=== PATIENT | female | born 1990 | race Caucasian/White ===

== ENCOUNTER 2016-10-01 05:33 | Emergency (ER) | payer OTHER ==
[~2016-10-01 05:33] MED LIST: ACET50TA PO; MOTR200T44 PO; PRE-TAB3 PO
[2016-10-01 06:01] LABS: CONTROL LINE UCG INT CTR LINE PRESENT
[2016-10-01] MEDS ORDERED: PHENAZOPYRIDINE 100 MG TAB As Ordered ONE (06:48)
[2016-10-01] MEDS ORDERED: CIPROFLOXACIN 500 MG TAB As Ordered ONE (06:48)
--- NOTE | 2016-10-01 06:55 | EDDOCDS ---
Nurse's Notes [facility] Name: Alyce Iqbal Age: 26 yrs Sex: Female : 1990 Arrival Date: 10/01/2016 Time: 05:33 Bed 17 Private MD: Breanna Law Diagnosis: Acute cystitis with hematuria Presentation: 10/01 05:39 Presenting complaint: Patient states: back pain since Friday urinary frequency and cz burning hematuria yesterday morning. Adult Sepsis Screening: The patient does not have new or worsening altered mentation. Patient's respiratory rate is less than 22. Systolic blood pressure is greater than 100. Patient has a qSOFA score of 0- Negative Sepsis Screen. Suicide/Homicide risk assessment- the patient denies having any suicidal and/or homicidal ideations and does not present with any other emotional, behavioral or mental health complaints. Status: The patient is a dependent. Transition of care: patient was not received from another setting of care. 05:39 Acuity: GÓMEZ Level 4 cz 05:39 Method Of Arrival: Walkin/Carried/Asstd cz Triage Assessment: 05:42 General: Appears in no apparent distress. Pain: Location: pelvis Pain currently is 4 cz out of 10 on a pain scale. Pt Declines HIV testing. 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 Zoloft Oral 2. control - PMHx: Depression; - PSHx: wisdom teeth extraction; - Social history: Smoking status: Patient states was never smoker of tobacco. No barriers to communication noted, The patient speaks fluent Syriac, Speaks appropriately for age. - Family history: Not pertinent. - : The pt / caregiver states he / she is not on anticoagulants. Home medication list is obtained from the patient. - Exposure Risk Screening:: None identified. Screenin:56 Screening information is obtained from the patient. Fall risk: No risks identified. ko2 Assistance ADL's: requires no assistance with activities of daily living. Abuse/DV Screen: The patient / caregiver reports he/she is: not in a situation that causes fear, pain or injury. Nutritional screening: No deficits noted. Advance Directives: Currently, there is no health care proxy. There is no active DNR order. There is no living will. There is no Power of Online Content Editor. home support is adequate. Assessment: 05:55 General: Appears in no apparent distress, Behavior is appropriate for age, cooperative. ko2 Pain: Location: pelvis. Neurological: No deficits noted. Respiratory: No deficits noted. : Reports burning with urination hematuria urinary frequency. Derm: Skin is normal. Musculoskeletal: Range of motion intact in all extremities. 06:53 General: Appears in no apparent distress, Behavior is appropriate for age, cooperative. ko2 Pain: Location: pelvis. Neurological: No deficits noted. Respiratory: No deficits noted. Derm: Skin is normal. Vital Signs: 05:42 BP 114 / 63; Pulse 78; Resp 16; Temp 97.5; Pulse Ox 97% ; Weight 72.57 kg; Height 5 ft. cz 6 in. (167.64 cm); 05:42 Body Mass Index 25.82 (72.57 kg, 167.64 cm) cz Vitals: 05:42 Log In Time: October 01, 2016 at 05:33. ED Course: 05:35 Patient visited by Brody Gong Reg. pm4 05:35 Breanna Law is Private Physician. pm4 05:35 Patient moved to Waiting pm4 05:41 Triage Initiated cz 05:53 Lety Murphy,RN is Primary Nurse. cz 05:53 Patient moved to 17 cz 05:55 Patient visited by Lety Murphy,SHILPI. ko2 05:56 The patient / caregiver is instructed regarding the plan of care and ED course. ko2 06:08 [facility] Payment Agreement was scanned into [employer] and attached to record. hs2 06:11 Patient name changed from Alyce\S\\S\Sofield\S\ to Alyce\S\Clary\S\Sofield. EDMS 06:22 Álvaro Gillespie DO is Attending Physician. mm11 06:23 Patient visited by Álvaro Gillespie DO. mm11 06:43 Patient visited by Álvaro Gillespie DO. mm11 06:43 Johnathan [facility] is Referral Physician. mm11 06:53 No IV's were initiated during this patient's visit. No procedures done that require ko2 assistance. Administered Medications: 06:53 Drug: Ciprofloxacin 500 mg [ciprofloxacin 500 mg tablet (1 tabs)] Route: PO; ko2 06:53 Drug: Phenazopyridine 200 mg [phenazopyridine 100 mg tablet (2 tabs)] Route: PO; ko2 Order Results: Lab Order: UA; SPEC'M 10/01/16 05:48 Test: APPEARANCE, URINE; Value: CLOUDY; Range: CLEAR; Abnormal: Above high normal; Status: F Test: COLOR, URINE; Value: LEIF; Range: YELLOW; Status: F Test: PH,URINE; Value: 5.0; Range: 5.0-9.0; Units: UNITS; Status: F Test: SPECIFIC GRAVITY URINE AUTO; Value: 1.018; Range: 1.002-1.035; Status: F Test: PROTEIN, URINE AUTO; Value: 1+; Range: NEGATIVE; Abnormal: Above high normal; Units: mg/dL; Status: F Test: GLUCOSE, URINE (UA) AUTO; Value: NEGATIVE; Range: NEGATIVE; Units: mg/dL; Status: F Test: KETONE, URINE AUTO; Value: NEGATIVE; Range: NEGATIVE; Units: mg/dL; Status: F Test: UROBILINOGEN, URINE AUTO; Value: 0.2; Range: 0.0-2.0; Units: mg/dL; Status: F Test: BILIRUBIN, URINE AUTO; Value: NEGATIVE; Range: NEGATIVE; Status: F Test: NITRITE, URINE AUTO; Value: POSITIVE; Range: NEGATIVE; Status: F Test: LEUKOCYTE ESTERASE, URINE AUTO; Value: 3+; Range: NEGATIVE; Abnormal: Above high normal; Status: F Test: BLOOD, URINE BLOOD; Value: 2+; Range: NEGATIVE; Abnormal: Above high normal; Status: F Test: WBC, URINE AUTO; Value: TNTC; Range: 0-3; Abnormal: Above high normal; Units: /HPF; Status: F Test: RBC, URINE AUTO; Value: 87; Range: 0-3; Abnormal: Above high normal; Units: /HPF; Status: F Test: BACTERIA, URINE AUTO; Value: 1+; Range: NEGATIVE; Abnormal: Above high normal; Status: F Test: SQUAMOUS EPITHELIAL CELL UR AU; Value: 2; Range: 0-6; Units: /HPF; Status: F Test: MUCUS, URINE; Value: SMALL; Range: NEGATIVE; Status: F Test: HYALINE CAST, URINE AUTO; Value: 0; Range: 0-1; Units: /LPF; Status: F Lab Order: Urine Test-In Lab; SPEC'M 10/01/16 05:48 Test: URINE PREG TEST; Value: NEGATIVE; Range: NEGATIVE; Status: F Outcome: 06:44 Discharge ordered by Provider. mm11 06:53 Discharge Assessment: Patient awake, alert and oriented x 3. No cognitive and/or ko2 functional deficits noted. Patient verbalized understanding of disposition instructions. patient administered narcotics - no. The following High Risk Discharge criteria are identified: None. Discharged to home ambulatory. Condition: stable. Discharge instructions given to patient, Instructed on discharge instructions, follow up and referral plans. medication usage, Demonstrated understanding of instructions, medications, Pt was receptive of discharge instructions/ teaching. Prescriptions given X 2. No special radiology studies were completed. Property sent home with patient. 06:54 Patient left the ED. ko2 Signatures: Dispatcher [employer] EDMS Buck Vazquez RN RN cz Álvaro Gillespie, DO DO mm11 Lety Murphy RN RN ko2 Jocelyne Iabrra, Reg Reg hs2 Brody Gong, Reg Reg pm4 ADEND
--- NOTE | 2016-10-01 06:55 | EDDOCDS ---
Physician Documentation [facility] Name: Alyce Iqbal Age: 26 yrs Sex: Female : 1990 Arrival Date: 10/01/2016 Time: 05:33 Bed 17 Private MD: Breanna Law Disposition: 10/01/16 06:44 Discharged to Home/Self Care. Impression: Acute cystitis with hematuria. - Condition is Stable. - Discharge Instructions: Urinary Tract Infection, Urinary Tract Infection, [id number]. - Prescriptions for Pyridium 200 mg Oral Tablet - take 1 tablet by ORAL route every 8 hours for 3 days; 9 tablet. Cipro 500 mg Oral Tablet - take 1 tablet by ORAL route every 12 hours; 10 tablet. - Medication Reconciliation, Local Pharmacy Hours form. - Follow up: CURRY Mann; When: Call to arrange an appointment; Reason: Continuance of care. - Problem is an acute exacerbation. - Symptoms have improved. Historical: - Allergies: No known drug Allergies; - Home Meds: 1. Zoloft Oral 2. control - PMHx: Depression; - PSHx: wisdom teeth extraction; - Social history: Smoking status: Patient states was never smoker of tobacco. No barriers to communication noted, The patient speaks fluent Arabic, Speaks appropriately for age. - Family history: Not pertinent. - : The pt / caregiver states he / she is not on anticoagulants. Home medication list is obtained from the patient. - Exposure Risk Screening:: None identified. 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 6 in. (167.64 cm); 05:42 Body Mass Index 25.82 (72.57 kg, 167.64 cm) cz MDM: 05:46 UA Ordered. EDMS 05:46 Urine Test-In Lab Ordered. EDMS 05:46 Urine Culture Ordered. EDMS 06:08 [facility] Payment Agreement was scanned into [employer] and attached to record. hs2 06:43 UA Reviewed. mm11 06:43 Urine Test-In Lab Reviewed. mm11 06:43 Ciprofloxacin 500 mg PO once ordered. mm11 06:43 Phenazopyridine 200 mg PO once ordered. mm11 06:44 Financial registration complete. hs2 Administered Medications: 06:53 Drug: Ciprofloxacin 500 mg [ciprofloxacin 500 mg tablet (1 tabs)] Route: PO; ko2 06:53 Drug: Phenazopyridine 200 mg [phenazopyridine 100 mg tablet (2 tabs)] Route: PO; ko2 Signatures: Dispatcher [employer] EDMS Buck Vazquez RN RN cz Álvaro Gillespie DO DO mm11 Lety Murphy RN RN ko2 Jocelyne Ibarra, Reg Reg hs2 The chart was reviewed and I authenticate all verbal orders and agree with the evaluation and treatment provided.Attachments: 06:08 [facility] Payment Agreement hs2 MTDD
--- NOTE | 2016-10-03 07:55 | EDDOCDS ---
Physician Documentation [facility] Name: Alyce Iqbal Age: 26 yrs Sex: Female : 1990 Arrival Date: 10/01/2016 Time: 05:33 Bed 17 Private MD: Breanna Law Disposition: 10/01/16 06:44 Discharged to Home/Self Care. Impression: Acute cystitis with hematuria. - Condition is Stable. - Discharge Instructions: Urinary Tract Infection, Urinary Tract Infection, [id number]. - Prescriptions for Pyridium 200 mg Oral Tablet - take 1 tablet by ORAL route every 8 hours for 3 days; 9 tablet. Cipro 500 mg Oral Tablet - take 1 tablet by ORAL route every 12 hours; 10 tablet. - Medication Reconciliation, Local Pharmacy Hours form. - Follow up: CURRY Mann; When: Call to arrange an appointment; Reason: Continuance of care. - Problem is an acute exacerbation. - Symptoms have improved. Historical: - Allergies: No known drug Allergies; - Home Meds: 1. Zoloft Oral 2. control - PMHx: Depression; - PSHx: wisdom teeth extraction; - Social history: Smoking status: Patient states was never smoker of tobacco. No barriers to communication noted, The patient speaks fluent Portuguese, Speaks appropriately for age. - Family history: Not pertinent. - : The pt / caregiver states he / she is not on anticoagulants. Home medication list is obtained from the patient. - Exposure Risk Screening:: None identified. 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 6 in. (167.64 cm); 05:42 Body Mass Index 25.82 (72.57 kg, 167.64 cm) cz MDM: 05:46 UA Ordered. EDMS 05:46 Urine Test-In Lab Ordered. EDMS 05:46 Urine Culture Ordered. EDMS 06:08 [facility] Payment Agreement was scanned into [employer] and attached to record. hs2 06:43 UA Reviewed. mm11 06:43 Urine Test-In Lab Reviewed. mm11 06:43 Ciprofloxacin 500 mg PO once ordered. mm11 06:43 Phenazopyridine 200 mg PO once ordered. mm11 06:44 Financial registration complete. hs2 12:13 T-Sheet-- Draft Copy was scanned into [employer] and attached to record. gb Administered Medications: 06:53 Drug: Ciprofloxacin 500 mg [ciprofloxacin 500 mg tablet (1 tabs)] Route: PO; ko2 06:53 Drug: Phenazopyridine 200 mg [phenazopyridine 100 mg tablet (2 tabs)] Route: PO; ko2 Signatures: Dispatcher [employer] EDMS Buck Vazquez, RN RN cz Echo Mays, Reg Reg gb Álvaro Gillespie DO DO mm11 Lety Murphy RN RN ko2 Jocelyne Ibarra, Reg Reg hs2 The chart was reviewed and I authenticate all verbal orders and agree with the evaluation and treatment provided.Attachments: 06:08 [facility] Payment Agreement hs2 12:13 T-Sheet-- Draft Copy gb Chart Complete MTDD
--- NOTE | 2016-10-03 07:55 | EDDOCDS ---
Physician Documentation [facility] Name: Alyce Iqbal Age: 26 yrs Sex: Female : 1990 Arrival Date: 10/01/2016 Time: 05:33 Bed 17 Private MD: Breanna Law Disposition: 10/01/16 06:44 Discharged to Home/Self Care. Impression: Acute cystitis with hematuria. - Condition is Stable. - Discharge Instructions: Urinary Tract Infection, Urinary Tract Infection, [id number]. - Prescriptions for Pyridium 200 mg Oral Tablet - take 1 tablet by ORAL route every 8 hours for 3 days; 9 tablet. Cipro 500 mg Oral Tablet - take 1 tablet by ORAL route every 12 hours; 10 tablet. - Medication Reconciliation, Local Pharmacy Hours form. - Follow up: CURRY Mann; When: Call to arrange an appointment; Reason: Continuance of care. - Problem is an acute exacerbation. - Symptoms have improved. Historical: - Allergies: No known drug Allergies; - Home Meds: 1. Zoloft Oral 2. control - PMHx: Depression; - PSHx: wisdom teeth extraction; - Social history: Smoking status: Patient states was never smoker of tobacco. No barriers to communication noted, The patient speaks fluent Romanian, Speaks appropriately for age. - Family history: Not pertinent. - : The pt / caregiver states he / she is not on anticoagulants. Home medication list is obtained from the patient. - Exposure Risk Screening:: None identified. 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 6 in. (167.64 cm); 05:42 Body Mass Index 25.82 (72.57 kg, 167.64 cm) cz MDM: 05:46 UA Ordered. EDMS 05:46 Urine Test-In Lab Ordered. EDMS 05:46 Urine Culture Ordered. EDMS 06:08 [facility] Payment Agreement was scanned into [employer] and attached to record. hs2 06:43 UA Reviewed. mm11 06:43 Urine Test-In Lab Reviewed. mm11 06:43 Ciprofloxacin 500 mg PO once ordered. mm11 06:43 Phenazopyridine 200 mg PO once ordered. mm11 06:44 Financial registration complete. hs2 12:13 T-Sheet-- Draft Copy was scanned into [employer] and attached to record. gb Administered Medications: 06:53 Drug: Ciprofloxacin 500 mg [ciprofloxacin 500 mg tablet (1 tabs)] Route: PO; ko2 06:53 Drug: Phenazopyridine 200 mg [phenazopyridine 100 mg tablet (2 tabs)] Route: PO; ko2 Signatures: Dispatcher [employer] EDMS Buck Vazquez, RN RN cz Echo Mays, Reg Reg gb Álvaro Gillespie DO DO mm11 Lety Murphy RN RN ko2 Jocelyne Ibarra, Reg Reg hs2 The chart was reviewed and I authenticate all verbal orders and agree with the evaluation and treatment provided.Attachments: 06:08 [facility] Payment Agreement hs2 12:13 T-Sheet-- Draft Copy gb Chart Complete MTDD
--- NOTE | 2016-10-03 07:56 | EDDOCDS ---
Nurse's Notes [facility] Name: Alyce Iqbal Age: 26 yrs Sex: Female : 1990 Arrival Date: 10/01/2016 Time: 05:33 Bed 17 Private MD: Breanna Law Diagnosis: Acute cystitis with hematuria Presentation: 10/01 05:39 Presenting complaint: Patient states: back pain since Friday urinary frequency and cz burning hematuria yesterday morning. Adult Sepsis Screening: The patient does not have new or worsening altered mentation. Patient's respiratory rate is less than 22. Systolic blood pressure is greater than 100. Patient has a qSOFA score of 0- Negative Sepsis Screen. Suicide/Homicide risk assessment- the patient denies having any suicidal and/or homicidal ideations and does not present with any other emotional, behavioral or mental health complaints. Status: The patient is a dependent. Transition of care: patient was not received from another setting of care. 05:39 Acuity: GÓMEZ Level 4 cz 05:39 Method Of Arrival: Walkin/Carried/Asstd cz Triage Assessment: 05:42 General: Appears in no apparent distress. Pain: Location: pelvis Pain currently is 4 cz out of 10 on a pain scale. Pt Declines HIV testing. 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 Zoloft Oral 2. control - PMHx: Depression; - PSHx: wisdom teeth extraction; - Social history: Smoking status: Patient states was never smoker of tobacco. No barriers to communication noted, The patient speaks fluent Occitan, Speaks appropriately for age. - Family history: Not pertinent. - : The pt / caregiver states he / she is not on anticoagulants. Home medication list is obtained from the patient. - Exposure Risk Screening:: None identified. Screenin:56 Screening information is obtained from the patient. Fall risk: No risks identified. ko2 Assistance ADL's: requires no assistance with activities of daily living. Abuse/DV Screen: The patient / caregiver reports he/she is: not in a situation that causes fear, pain or injury. Nutritional screening: No deficits noted. Advance Directives: Currently, there is no health care proxy. There is no active DNR order. There is no living will. There is no Power of Costing Analyst. home support is adequate. Assessment: 05:55 General: Appears in no apparent distress, Behavior is appropriate for age, cooperative. ko2 Pain: Location: pelvis. Neurological: No deficits noted. Respiratory: No deficits noted. : Reports burning with urination hematuria urinary frequency. Derm: Skin is normal. Musculoskeletal: Range of motion intact in all extremities. 06:53 General: Appears in no apparent distress, Behavior is appropriate for age, cooperative. ko2 Pain: Location: pelvis. Neurological: No deficits noted. Respiratory: No deficits noted. Derm: Skin is normal. Vital Signs: 05:42 BP 114 / 63; Pulse 78; Resp 16; Temp 97.5; Pulse Ox 97% ; Weight 72.57 kg; Height 5 ft. cz 6 in. (167.64 cm); 05:42 Body Mass Index 25.82 (72.57 kg, 167.64 cm) cz Vitals: 05:42 Log In Time: October 01, 2016 at 05:33. ED Course: 05:35 Patient visited by Brody Gong Reg. pm4 05:35 Breanna Law is Private Physician. pm4 05:35 Patient moved to Waiting pm4 05:41 Triage Initiated cz 05:53 Lety Murphy,RN is Primary Nurse. cz 05:53 Patient moved to 17 cz 05:55 Patient visited by Lety Murphy,SHILPI. ko2 05:56 The patient / caregiver is instructed regarding the plan of care and ED course. ko2 06:08 [facility] Payment Agreement was scanned into [employer] and attached to record. hs2 06:11 Patient name changed from Alyce\S\\S\Sofield\S\ to Alyce\S\Clary\S\Sofield. EDMS 06:22 Álvaro Gillespie DO is Attending Physician. mm11 06:23 Patient visited by Álvaro Gillespie DO. mm11 06:43 Patient visited by Álvaro Gillespie DO. mm11 06:43 Johnathan [facility] is Referral Physician. mm11 06:53 No IV's were initiated during this patient's visit. No procedures done that require ko2 assistance. 12:13 T-Sheet-- Draft Copy was scanned into [employer] and attached to record. gb Administered Medications: 06:53 Drug: Ciprofloxacin 500 mg [ciprofloxacin 500 mg tablet (1 tabs)] Route: PO; ko2 06:53 Drug: Phenazopyridine 200 mg [phenazopyridine 100 mg tablet (2 tabs)] Route: PO; ko2 Order Results: Lab Order: UA; SPEC'M 10/01/16 05:48 Test: APPEARANCE, URINE; Value: CLOUDY; Range: CLEAR; Abnormal: Above high normal; Status: F Test: COLOR, URINE; Value: LEIF; Range: YELLOW; Status: F Test: PH,URINE; Value: 5.0; Range: 5.0-9.0; Units: UNITS; Status: F Test: SPECIFIC GRAVITY URINE AUTO; Value: 1.018; Range: 1.002-1.035; Status: F Test: PROTEIN, URINE AUTO; Value: 1+; Range: NEGATIVE; Abnormal: Above high normal; Units: mg/dL; Status: F Test: GLUCOSE, URINE (UA) AUTO; Value: NEGATIVE; Range: NEGATIVE; Units: mg/dL; Status: F Test: KETONE, URINE AUTO; Value: NEGATIVE; Range: NEGATIVE; Units: mg/dL; Status: F Test: UROBILINOGEN, URINE AUTO; Value: 0.2; Range: 0.0-2.0; Units: mg/dL; Status: F Test: BILIRUBIN, URINE AUTO; Value: NEGATIVE; Range: NEGATIVE; Status: F Test: NITRITE, URINE AUTO; Value: POSITIVE; Range: NEGATIVE; Status: F Test: LEUKOCYTE ESTERASE, URINE AUTO; Value: 3+; Range: NEGATIVE; Abnormal: Above high normal; Status: F Test: BLOOD, URINE BLOOD; Value: 2+; Range: NEGATIVE; Abnormal: Above high normal; Status: F Test: WBC, URINE AUTO; Value: TNTC; Range: 0-3; Abnormal: Above high normal; Units: /HPF; Status: F Test: RBC, URINE AUTO; Value: 87; Range: 0-3; Abnormal: Above high normal; Units: /HPF; Status: F Test: BACTERIA, URINE AUTO; Value: 1+; Range: NEGATIVE; Abnormal: Above high normal; Status: F Test: SQUAMOUS EPITHELIAL CELL UR AU; Value: 2; Range: 0-6; Units: /HPF; Status: F Test: MUCUS, URINE; Value: SMALL; Range: NEGATIVE; Status: F Test: HYALINE CAST, URINE AUTO; Value: 0; Range: 0-1; Units: /LPF; Status: F Lab Order: Urine Test-In Lab; SPEC'M 10/01/16 05:48 Test: URINE PREG TEST; Value: NEGATIVE; Range: NEGATIVE; Status: F Lab Order: Urine Culture; SPEC'M 10/01/16 05:49 Test: URINE CULTURE; Value: URINE CULTURE RESULT SPECIMEN APPEARS CONTAMINATED; Status: F Outcome: 06:44 Discharge ordered by Provider. mm11 06:53 Discharge Assessment: Patient awake, alert and oriented x 3. No cognitive and/or ko2 functional deficits noted. Patient verbalized understanding of disposition instructions. patient administered narcotics - no. The following High Risk Discharge criteria are identified: None. Discharged to home ambulatory. Condition: stable. Discharge instructions given to patient, Instructed on discharge instructions, follow up and referral plans. medication usage, Demonstrated understanding of instructions, medications, Pt was receptive of discharge instructions/ teaching. Prescriptions given X 2. No special radiology studies were completed. Property sent home with patient. 06:54 Patient left the ED. ko2 Signatures: Dispatcher [employer] EDMS Buck Vazquez, SHILPI RN cz Echo Mays, Reg Reg gb Álvaro Gillespie, DO mm11 Lety Murphy RN RN ko2 Jocelyne Ibarra, Reg Reg hs2 Brody Gong, Reg Reg pm4 Chart Complete MTDD
== END 2016-10-01 06:54 | disposition home or self-care (01) ==
LOC: M ED 05:33
DX: N30.01 Acute cystitis with hematuria (principal); F32.9 Major depressive disorder, single episode, unspecified

== ENCOUNTER → 2017-04-21 | Outpatient (REF) | payer OTHER | LOC: M SFHCLERA 16:07 | PROVIDERS: ATTEND Nurse Practitioner Family | DX: R30.0 Dysuria (principal) ==

== ENCOUNTER → 2017-04-26 | Outpatient (REF) | payer OTHER | LOC: M SFHCLERA 17:23 | PROVIDERS: ATTEND Nurse Practitioner Family | DX: L29.8 Other pruritus (principal); R30.0 Dysuria | CPT/HCPCS: 87070; 87088; 87186; G0463 ==

== ENCOUNTER → 2017-12-06 | Outpatient (REF) | payer OTHER ==
[2017-12-06 22:35] LABS: CHLAMYDIA DNA AMPLIFICATION NEGATIVE (NEGATIVE); GC DNA AMPLIFICATION NEGATIVE (NEGATIVE)
== END ==
LOC: M SFHCLERA 14:58
DX: L29.8 Other pruritus (principal)

== ENCOUNTER 2018-01-02 21:22 | Emergency (ER) | payer OTHER | END 2018-01-03 00:09 | disposition home or self-care (01) | LOC: M ED 01-03 00:09 | DX: S31.41XA Laceration without foreign body of vagina and vulva, initial encounter (principal); X58.XXXA Exposure to other specified factors, initial encounter; Y92.9 Unspecified place or not applicable; Y93.9 Activity, unspecified; Y99.9 Unspecified external cause status; R01.1 Cardiac murmur, unspecified | CPT/HCPCS: 99283 ==